=== PATIENT | female | born 1960 | race Caucasian/White ===

== ENCOUNTER 2018-06-19 18:01 | Emergency (ER) | payer BC ==
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
[2018-06-19] MEDS ORDERED: OXYCODONE/APAP 5/325 TAB PO ONE (19:29)
[2018-06-19] MEDS ORDERED: HYDROCOD/APAP 5/325 PREPACK#6 BTL TAKEHOME ONE (20:59)
[2018-06-19] MEDS ORDERED: APIXABAN 2.5 MG TAB PO ONE (21:00)
[2018-06-19 21:55] VITALS: BP 134/84
== END 2018-06-19 21:48 | disposition home or self-care (01) ==
DX: S82.141A Displaced bicondylar fracture of right tibia, initial encounter for closed fracture (principal); V18.0XXA Pedal cycle driver injured in noncollision transport accident in nontraffic accident, initial encounter; Y93.55 Activity, bike riding; Y92.828 Other wilderness area as the place of occurrence of the external cause